=== PATIENT | female | born 1995 | race American Indian/Alaskan Native ===

== ENCOUNTER 2018-05-07 13:46 | Emergency (ER) | payer SELFPAY ==
[2018-05-07 13:57] VITALS: BP 125/65
== END 2018-05-07 16:01 ==
LOC: ED 13:46
DX: H57.10 Ocular pain, unspecified eye (principal); Z53.21 Procedure and treatment not carried out due to patient leaving prior to being seen by health care provider

== ENCOUNTER 2018-05-08 06:44 | Emergency (ER) | payer SELFPAY ==
[2018-05-08 06:48] VITALS: BP 113/57
[2018-05-08] MEDS ORDERED: FUL-GLO OP ONE (07:49)
[2018-05-08] MEDS ORDERED: TETRACAINE 0.5% OU PRN (07:49)
--- NOTE | 2018-05-08 08:26 | Emergency Department Report ---
ED Eye Problem HPI - General Chief complaint: Eye Problems Stated complaint: LEFT EYE PAIN Time Seen by Provider: 05/08/18 07:42 Source: patient Mode of arrival: Ambulatory Limitations: No Limitations - History of Present Illness Initial comments: This is a 22-year-old female nontoxic, well nourished in appearance, no acute signs of distress presents to the ED with c/o of left eye pain, blurry vision 2 days. Patient stated that she was seen in the urgent care 2 days ago and has been diagnosed with corneal abrasion but has not received any antibiotics. Patient stated that the pain has not resolved and so she came to the ER today. Patient currently denies any decreased vision, unable to see, nausea, vomiting, headache, stiff neck, numbness, tingling, fever or chills. Patient stated that she had a sensation of a foreign body Patient denies any periorbital swelling or redness. Patient denies any trauma to eye. He stated that prior to the symptoms she was removing her contact lens and immediately developed slight pain that increased over time. Patient denies any allergies or significant past medical history. MD chief complaint: eye pain, eye redness -: days(s) (2) Onset Description: sudden Location: left eye Place: home If Injury: none Eye Symptoms: redness, pain, foreign body sensation Severity: mild Severity scale (0 -10): 8 If Pain, Quality: aching Consistency: constant Associated Symptoms: none Treatments Prior to Arrival: none - Related Data Patient Tetanus UTD: No Home Medications Medication Instructions Recorded Confirmed Last Taken Divalproex Sodium [Depakote] 125 mg PO BID 09/20/15 09/20/15 09/19/15 risperiDONE [RisperDAL] 0 mg PO QDAY 09/20/15 09/20/15 Unknown Previous Rx's Medication Instructions Recorded Last Taken Type Naproxen [Naprosyn] 500 mg PO BID #10 tablet 09/21/15 Unknown Rx Ibuprofen [Motrin] 600 mg PO Q8H PRN #30 tablet 08/25/16 Unknown Rx metroNIDAZOLE [Flagyl] 500 mg PO Q12HR #14 tab 08/25/16 Unknown Rx Acetaminophen/Codeine [Tylenol 1 tab PO Q6H PRN #12 tab 05/08/18 Unknown Rx /Codeine # 3 tab] Ciprofloxacin 0.3% (Nf) 2 drops OS TID #1 drops 05/08/18 Unknown Rx [Ciprofloxacin OPTH] Ibuprofen [Motrin] 600 mg PO Q8H PRN #30 tablet 05/08/18 Unknown Rx Allergies Allergy/AdvReac Type Severity Reaction Status Date / Time No Known Allergies Allergy Verified 05/08/18 07:06 ED Review of Systems ROS: Stated complaint: LEFT EYE PAIN Other details as noted in HPI Constitutional: denies: chills, fever Eyes: eye pain. denies: eye discharge, vision change ENT: denies: ear pain, throat pain Respiratory: denies: cough, shortness of breath, wheezing Cardiovascular: denies: chest pain, palpitations Endocrine: no symptoms reported Gastrointestinal: denies: abdominal pain, nausea, diarrhea Genitourinary: denies: urgency, dysuria, discharge Musculoskeletal: denies: back pain, joint swelling, arthralgia Skin: denies: rash, lesions Neurological: denies: headache, weakness, paresthesias Psychiatric: denies: anxiety, depression Hematological/Lymphatic: denies: easy bleeding, easy bruising ED Past Medical Hx - Past Medical History Hx Seizures: Yes - Surgical History Past Surgical History?: No - Social History Smoking Status: Never Smoker Substance Use Type: None - Medications Home Medications: Home Medications Medication Instructions Recorded Confirmed Last Taken Type Divalproex Sodium [Depakote] 125 mg PO BID 09/20/15 09/20/15 09/19/15 History risperiDONE [RisperDAL] 0 mg PO QDAY 09/20/15 09/20/15 Unknown History Naproxen [Naprosyn] 500 mg PO BID #10 tablet 09/21/15 Unknown Rx Ibuprofen [Motrin] 600 mg PO Q8H PRN #30 tablet 08/25/16 Unknown Rx metroNIDAZOLE [Flagyl] 500 mg PO Q12HR #14 tab 08/25/16 Unknown Rx Acetaminophen/Codeine [Tylenol 1 tab PO Q6H PRN #12 tab 05/08/18 Unknown Rx /Codeine # 3 tab] Ciprofloxacin 0.3% (Nf) 2 drops OS TID #1 drops 05/08/18 Unknown Rx [Ciprofloxacin OPTH] Ibuprofen [Motrin] 600 mg PO Q8H PRN #30 tablet 05/08/18 Unknown Rx ED Physical Exam - General Limitations: No Limitations General appearance: alert, in no apparent distress - Head Head exam: Present: atraumatic, normocephalic - Eye Eye exam: Present: normal appearance, PERRL, EOMI Pupils: Present: normal accommodation - Expanded Eye Exam Expanded Eyelids: Normal Inspection: Left Pupils: Regular, Round: Left, Reactive: Left Sclera/Conjunctival: Normal Inspection: Left Anterior chamber: Normal Inspection: Left Visual acuity (R) = 20/: 20 Visual acuity (L) = 20/: 0 (due to blurry vision) With correction: No IOP measured with: Tonopen (12-left eye) - ENT ENT exam: Present: normal exam, mucous membranes moist - Neck Neck exam: Present: normal inspection, full ROM. Absent: tenderness, meningismus, lymphadenopathy - Respiratory Respiratory exam: Present: normal lung sounds bilaterally. Absent: respiratory distress, wheezes, rales, rhonchi, stridor, chest wall tenderness, accessory muscle use, decreased breath sounds, prolonged expiratory - Cardiovascular Cardiovascular Exam: Present: regular rate, normal rhythm, normal heart sounds. Absent: bradycardia, tachycardia, irregular rhythm, systolic murmur, diastolic murmur, rubs, gallop - GI/Abdominal GI/Abdominal exam: Present: soft, normal bowel sounds - Extremities Exam Extremities exam: Present: normal inspection - Back Exam Back exam: Present: normal inspection - Neurological Exam Neurological exam: Present: alert, oriented X3 - Psychiatric Psychiatric exam: Present: normal affect, normal mood - Skin Skin exam: Present: warm, dry, intact, normal color. Absent: rash - Other Other exam information: Under Gr lamp, I used fluorescein and tetracaine to examine cornea for corneal abrasion or foreign body, negative for foreign body noted upon exam but there is a corneal abrasion/ulcer to mid/right lateral iris. ED Course Vital Signs 05/08/18 05/08/18 06:42 07:06 Temperature 98.2 F 98.2 F Pulse Rate 73 62 Respiratory 18 18 Rate Blood Pressure 113/57 113/57 O2 Sat by Pulse 100 99 Oximetry - Reevaluation(s) Reevaluation #1: 05/08/18 08:35 Patient is speaking in full sentences with no signs of distress noted. ED Medical Decision Making - Medical Decision Making This is a 22-year-old female that presents with corneal abrasion/ulcer. Patient is stable was examined by me. Patient has normal EOMI. Pupils are normally reactive to light. Hansel-Pen is 12. There is no periorbital swelling or periorbital cellulitis noted. Patient stated that she takes eye pain drops that was prescribed to her and at urgent care but was not prescribed any antibiotics. I instructed to the patient that if the pain drops are tetracaine eyedrops that she should stop using this as this could cause the ulcers/ abrasions worse. I will discharge patient with Tylenol with Codeine and I instructed her not to operate any machinery while doing so advised this could cause drowsiness. Patient also is receiving ciprofloxacin ophthalmic drops at discharge. Patient was instructed and referred to Follow-up with a machines technician doctor in 1-2 days or if symptoms worsen and continue return to emergency room as soon as possible. At time of discharge, the patient does not seem toxic or ill in appearance. No acute signs of distress noted. Patient agrees to discharge treatment plan of care. No further questions noted by the patient. Critical care attestation.: If time is entered above; I have spent that time in minutes in the direct care of this critically ill patient, excluding procedure time. ED Disposition Clinical Impression: Corneal abrasion Qualifiers: Encounter type: initial encounter Laterality: left Qualified Code(s): S05.02XA - Injury of conjunctiva and corneal abrasion without foreign body, left eye, initial encounter Corneal ulcer Qualifiers: Laterality: left Qualified Code(s): H16.002 - Unspecified corneal ulcer, left eye Disposition: DC- TO HOME OR SELFCARE Is pt being admited?: No Does the pt Need Aspirin: No Condition: Stable Instructions: Corneal Abrasion (ED) Additional Instructions: Follow-up with a machines technician doctor in 3-5 days or if symptoms worsen and continue return to emergency room as soon as possible. Prescriptions: Acetaminophen/Codeine [Tylenol /Codeine # 3 tab] 1 tab PO Q6H PRN #12 tab PRN Reason: Pain , Severe (7-10) Ciprofloxacin 0.3% (Nf) [Ciprofloxacin OPTH] 2 drops OS TID #1 drops Ibuprofen [Motrin] 600 mg PO Q8H PRN #30 tablet PRN Reason: Pain Referrals: PRIMARY CAREMD [Primary Care Provider] - 3-5 Days [facility] [Outside] - 3-5 Days FATEMEH HDZ MD [Staff Physician] - [facility] Forms: Work/School Release Form(ED)
[2018-05-08] MEDS ORDERED: BOOSTRIX IM ONE (08:32)
== END 2018-05-08 09:16 | disposition home or self-care (01) ==
LOC: ED 06:44
DX: S05.02XA Injury of conjunctiva and corneal abrasion without foreign body, left eye, initial encounter (principal); H16.002 Unspecified corneal ulcer, left eye; X58.XXXA Exposure to other specified factors, initial encounter; Y93.89 Activity, other specified; Y99.8 Other external cause status; Y92.89 Other specified places as the place of occurrence of the external cause
CPT/HCPCS: 90471; 90715

== ENCOUNTER 2018-06-16 15:40 | Emergency (ER) | payer SELFPAY ==
[2018-06-16 16:07] VITALS: BP 112/61
== END 2018-06-16 20:15 | disposition left against medical advice (07) ==
LOC: ED 15:40
DX: N89.8 Other specified noninflammatory disorders of vagina (principal); F17.200 Nicotine dependence, unspecified, uncomplicated; Z53.21 Procedure and treatment not carried out due to patient leaving prior to being seen by health care provider

== ENCOUNTER 2018-12-07 05:36 | Emergency (ER) | payer MEDICAID, OTHER ==
[2018-12-07 05:46] VITALS: BP 93/70
[2018-12-07 07:12] LABS: Alanine Aminotransferase 6 units/L (7-56); Albumin 3.2 g/dL (3.9-5); BUN/Creatinine Ratio 15; Blood Urea Nitrogen 6 mg/dL (7-17); Calcium 8.1 mg/dL (8.4-10.2); Hemolysis Index 17
[2018-12-07 07:30] LABS: Hematocrit 29.2 % (30.3-42.9); Hemoglobin 9.8 gm/dl (10.1-14.3); Mean Corpuscular HGB Conc 33 % (30-34); Mean Corpuscular Volume 95 fl (79-97); Red Blood Count 3.07 M/mm3 (3.65-5.03); Red Cell Distribution Width 13.3 % (13.2-15.2)
[2018-12-07 07:31] LABS: Monocytes % (Auto) 7.3 % (0.0-7.3); Platelet Count 184 K/mm3 (140-440)
[2018-12-07 07:32] LABS: Basophils % (Auto) 0.3 % (0.0-1.8); Eosinophils # (Auto) 0.1 K/mm3 (0.0-0.4); Eosinophils % (Auto) 0.8 % (0.0-4.3); Lymphocytes # (Auto) 2.5 K/mm3 (1.2-5.4); Monocytes # (Auto) 0.8 K/mm3 (0.0-0.8)
[2018-12-07] MEDS ORDERED: NORCO 5/325 PO ONE (08:59)
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
== END 2018-12-07 10:51 | disposition home or self-care (01) ==
LOC: ED 05:36
DX: O26.893 Other specified pregnancy related conditions, third trimester (principal); L05.01 Pilonidal cyst with abscess; Z3A.29 29 weeks gestation of pregnancy
CPT/HCPCS: 36415; 80053; 82140; 85025; 86140

== ENCOUNTER 2019-01-16 15:31 | Outpatient (CLI) | payer OTHER ==
[2019-01-16] MEDS ORDERED: LACTATED RINGERS 1,000 ML IV ONE ×2 (17:54→20:38)
[2019-01-16 18:35] VITALS: BP 126/65
[2019-01-16 20:12] LABS: Bacteria,Urine 1+ /HPF (Negative); Bilirubin,Urine NEG (Negative); Blood,Urine NEG (Negative); Color,Urine Yellow (Yellow); Protein,Urine <15 mg/dL mg/dL (Negative); Urobilinogen,Urine < 2.0 mg/dL (<2.0)
== END 2019-01-16 21:13 | disposition home or self-care (01) ==
LOC: TRG 15:31 → LD 15:38 → TRG 21:13
PROVIDERS: ATTEND Obstetrics & Gynecology
DX: O47.03 False labor before 37 completed weeks of gestation, third trimester (principal); Z3A.35 35 weeks gestation of pregnancy
CPT/HCPCS: 59025; 81001; J7120

== ENCOUNTER 2019-02-07 06:06 | Outpatient (CLI) | payer OTHER ==
[2019-02-07] MEDS ORDERED: STADOL IV PRN (08:39)
[2019-02-07] MEDS ORDERED: LACTATED RINGERS 1,000 ML IV ONE (08:39)
--- NOTE | 2019-02-07 09:12 | Ultrasound Report ---
ULTRASOUND OB LIMITED History: RENALDO, presentation Technique: Transabdominal ultrasound with Doppler interrogation. Gestation: Single Position: Breech Amniotic Fluid: Normal RENALDO = 17.3 cm Heart Rate: 123 BPM
--- NOTE | 2019-02-07 09:13 | Ultrasound Report ---
ULTRASOUND BIOPHYSICAL PROFILE: History: Vaginal leaking Technique: Transabdominal ultrasound with Doppler interrogation. 2 - breathing movements 2 - movements 2 - posture and tone 2 - Qualitative amniotic fluid volume 8 - TOTAL SCORE OF POSSIBLE 8 Heart Rate (bpm) 123
[2019-02-07 10:33] VITALS: BP 108/59
--- NOTE | 2019-02-07 18:45 | Consultation ---
HISTORY OF PRESENT ILLNESS: I was called to see in neurological consult regarding ongoing seizures. She is 39 weeks . I was spoken to by the OB attending. Apparently, she has not been taking her seizure medicines and there was some concern about having her admitted because she might be exposed to more severe seizures. She apparently was in the triage area and then decided to leave the hospital against medical advice before I had the opportunity to see her. Hopefully, she will make contact with my office to have her Keppra therapy reinstituted, but she did leave against medical advice, I was in the OB Department to see her and she had already left at that point. JOB# [id number] ERMELINDA/ESTRADA
== END 2019-02-07 11:31 | disposition left against medical advice (07) ==
LOC: TRG 06:06
PROVIDERS: ATTEND Obstetrics & Gynecology
DX: O62.9 Abnormality of forces of labor, unspecified (principal); Z3A.38 38 weeks gestation of pregnancy
CPT/HCPCS: 59025; 76815; 76819; 87210; J0595; J7120

== ENCOUNTER 2019-07-18 14:31 | Emergency (ER) | payer SELFPAY ==
[2019-07-18 14:42] VITALS: BP 104/48
--- NOTE | 2019-07-18 14:58 | Event Note ---
ED Screening Note Date of service: 07/18/19 Time: 14:55 ED Screening Note: This is a 24 y.o. F. that presents to the ER with urinary frequency and possible . + test last week and one - test - dysuria, vaginal discharge, pelvic pain, or vaginal bleeding LMP 06/06/2019 This initial assessment/diagnostic orders/clinical plan/treatment(s) is/are subject to change based on patients health status, clinical progression and re- assessment by fellow clinical providers in the ED. Further treatment and workup at subsequent clinical providers discretion. Patient/guardian urged not to elope from the ED as their condition may be serious if not clinically assessed and managed. Initial orders include: UA and hCG
[2019-07-18 15:26] LABS: HCG Qualitative,Urine Positive (Negative)
[2019-07-18 15:31] LABS: Bacteria,Urine 2+ /HPF (Negative); Bilirubin,Urine NEG (Negative); Blood,Urine NEG (Negative); Color,Urine Yellow (Yellow); Mucus,Urine 1+ /HPF
[2019-07-18] MEDS ORDERED: MACROBID PO ONE (17:15)
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
== END 2019-07-18 19:03 | disposition home or self-care (01) ==
LOC: ED 14:31
DX: O23.41 Unspecified infection of urinary tract in pregnancy, first trimester (principal); Z3A.01 Less than 8 weeks gestation of pregnancy
CPT/HCPCS: 81001; 81025; 87076; 87086; 87186

== ENCOUNTER 2019-09-12 18:44 | Emergency (ER) | payer SELFPAY ==
--- NOTE | 2019-09-12 19:00 | Event Note ---
ED Screening Note Date of service: 09/12/19 Time: 18:58 ED Screening Note: c/o sore throat x 4 days and vaginal bump x 1 day denies fever pain at a 7/10 in severity This initial assessment/diagnostic orders/clinical plan/treatment(s) is/are subject to change based on patients health status, clinical progression and re- assessment by fellow clinical providers in the ED. Further treatment and workup at subsequent clinical providers discretion. Patient/guardian urged not to elope from the ED as their condition may be serious if not clinically assessed and managed. Initial orders include: rapid strep
[2019-09-12 19:01] VITALS: BP 98/61
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
== END 2019-09-13 00:30 | disposition home or self-care (01) ==
LOC: ED 18:44
DX: J02.0 Streptococcal pharyngitis (principal); A60.00 Herpesviral infection of urogenital system, unspecified
CPT/HCPCS: 87430